=== PATIENT | female | born 1990 | race Caucasian/White ===

== ENCOUNTER → 2017-02-17 | Outpatient (CLI) | payer OTHER ==
--- NOTE | 2017-02-17 16:02 | DIAGNOSTIC IMAGING REPORT ---
EXAMINATION: PELVIC ULTRASOUND (endovaginal study only) CLINICAL HISTORY: Pelvic pain COMPARISON STUDY: FINDINGS: The uterus measured 7.3 x 4.1 x 3.3 cm. The endometrial stripe measured 5 mm. The right ovary measured 1 7 x 24 x 16 mm. The left ovary measured 3 1 x 28 x 22 mm. There is a dominant 18 mm follicle.. There is no ultrasonographic evidence of ovarian torsion. It should be noted that ovarian torsion can be present with normal Doppler ultrasonographic findings. There was no evidence of pathologic free pelvic fluid. IMPRESSION: Normal study Electronically signed by: Chava Turcios M.D. 02/17/2017 4:01 PM Dictated Date/Time: 02/17/2017 3:46 PM
== END | disposition home or self-care (01) ==
LOC: C.ULTRBC 14:45
PROVIDERS: ATTEND Family Medicine
DX: R10.9 Unspecified abdominal pain (principal); R20.2 Paresthesia of skin

== ENCOUNTER 2017-10-23 00:28 | Emergency (ER) | payer OTHER ==
[~2017-10-23] VITALS: Ht 162.6 cm; Wt 68.4 kg
[2017-10-23 00:39] VITALS: TEMP 36.4; Ht 162.6 cm; Wt 68.4 kg
[2017-10-23] MEDS ORDERED: CEFTRIAXONE SOD INJ 1 GM ADDVIAL IV STA (01:26)
[2017-10-23] MEDS ORDERED: CEPHALEXIN 500MG HOME PACK 1 EA BTL PO ONE (01:30)
[2017-10-23] MEDS ORDERED: BCPILLS PO (01:44)
[2017-10-23 01:52] LABS: BASO % 0.3 %; BASO ABS # 0.03 K/uL (0-0.2); COMPLETE YES; EOS % 5.6 %; HEMATOCRIT 39.4 % (37-47); IG% 0.2 %; LYMPH % 39.2 %; LYMPH ABS # 4.33 K/uL (1.2-3.4); MEAN CORPUSCULAR HEMOGLOBIN 29.9 pg (25-34); MEAN CORPUSCULAR HGB CONC 33.2 g/dl (32-36); MEAN PLATELET VOLUME 11.3 fL (7.4-10.4); MONO % 5.4 %; NEUT % 49.3 %; PLATELET COUNT 273 K/uL (130-400); RED BLOOD COUNT 4.38 M/uL (4.2-5.4); WHITE BLOOD COUNT 11.04 K/uL (4.8-10.8)
[2017-10-23 02:20] LABS: PREG INTERNAL NEGATIVE QC NEG CLEAR BACKGROUND; PREG INTERNAL POSITIVE QC POS CONTROL LINE
[2017-10-23 02:31] LABS: BUN/CREATININE RATIO 17.5 (10-20); CREATININE 0.65 mg/dl (0.60-1.20); POTASSIUM 3.6 mmol/L (3.5-5.1)
[2017-10-23] MEDS ORDERED: CEPH500C2 PO (03:04)
[2017-10-23 03:12] VITALS: BP 112/61; PULSE 78; O2SAT 98
--- NOTE | 2017-10-23 06:33 | DIAGNOSTIC IMAGING REPORT ---
ULTRASOUND L VENOUS DOPP LOWER EXT UNILAT CLINICAL HISTORY: Left leg swelling COMPARISON STUDY: No previous studies for comparison. FINDINGS: Real-time and color flow Doppler imaging were performed. Flow was seen within the femoral, popliteal and calf veins with no intraluminal thrombus demonstrated. The saphenous vein is patent. There is lower left leg soft tissue edema. IMPRESSION: No evidence of left lower extremity DVT. Electronically signed by: Chava Turcios M.D. 10/23/2017 6:31 AM Dictated Date/Time: 10/23/2017 6:31 AM
--- NOTE | 2017-10-23 06:46 | EMERGENCY ROOM VISIT NOTE ---
History First contact with patient: 01:08 Chief Complaint: SWELLING TO EXTREMITY Stated Complaint: SWOLLEN ANKLE,NUMBNESS ON THUMBS History of Present Illness The patient is a 27 year old female who presents to the Emergency Room with complaints of left lower ankle pain and swelling for the past day that is erythematous concerning for infection. Patient did something bit her. Pain described as throbbing, 5 out of 10. Movement makes it worse and nothing makes it better. It does not radiate. Patient with the pain and swelling to the area. She has traveled recently. No history DVT or PE. She does not smoke. Tetanus is current. Patient denies chest pain, dyspnea, fever, chills, vomiting. Review of Systems An 8 system review of systems was completed with positives and pertinent negatives listed in the HPI. Past Medical/Surgical History Medical Problems: (1) TMJ disease Social History Smoking Status: Never Smoker Alcohol Use: none Drug Use: none Marital Status: single Housing Status: lives with roommate Occupation Status: [employer] student Current/Historical Medications Scheduled Control Pills ( Control Pills), 1 TAB PO DAILY Cephalexin Monohydrate (Keflex), 500 MG PO QID Physical Exam Vital Signs Date Time Temp Pulse Resp B/P (MAP) Pulse Ox O2 Delivery O2 Flow Rate FiO2 10/23/17 03:12 78 18 112/61 98 Room Air 10/23/17 02:44 70 18 112/76 98 Room Air 10/23/17 00:39 36.4 75 18 105/67 97 Room Air Physical Exam VITALS: Vitals are noted on the nurse's note and reviewed by myself. Vital signs stable. GENERAL: Pleasant female, in no acute distress, nondiaphoretic, well-developed well-nourished. SKIN: Capillary reflex less than 2 seconds. HEENT: Normocephalic. PERRLA. EOMI. Nares patent. Mucous membranes moist. Neck is supple without nuchal rigidity. HEART: Regular rate and rhythm without murmurs gallops or rubs. LUNGS: Clear to auscultation bilaterally without wheezes, rales or rhonchi. No retractions or accessory muscle use. MUSCULOSKELETAL: No gross musculoskeletal defects. Left lateral ankle erythematous and edematous with bite cynthia present concerning for infection. No calf tenderness. Pedal pulses +2 equal present bilaterally. NEURO: Patient was alert and oriented to person place and time. Normal sensation to light and sharp touch. No focal neurological deficits. Medical Decision & Procedures Laboratory Results 10/23/17 01:42 Red Blood Count 4.38, Mean Corpuscular Volume 90.0, Mean Corpuscular Hemoglobin 29.9, Mean Corpuscular Hemoglobin Concent 33.2, Mean Platelet Volume 11.3, Neutrophils (%) (Auto) 49.3, Lymphocytes (%) (Auto) 39.2, Monocytes (%) (Auto) 5.4, Eosinophils (%) (Auto) 5.6, Basophils (%) (Auto) 0.3, Neutrophils # (Auto) 5.44, Lymphocytes # (Auto) 4.33, Monocytes # (Auto) 0.60, Eosinophils # (Auto) 0.62, Basophils # (Auto) 0.03 10/23/17 01:42 Test 10/23/17 01:42 White Blood Count 11.04 K/uL (4.8-10.8) Red Blood Count 4.38 M/uL (4.2-5.4) Hemoglobin 13.1 g/dL (12.0-16.0) Hematocrit 39.4 % (37-47) Mean Corpuscular Volume 90.0 fL (80-100) Mean Corpuscular Hemoglobin 29.9 pg (25-34) Mean Corpuscular Hemoglobin Concent 33.2 g/dl (32-36) Platelet Count 273 K/uL (130-400) Mean Platelet Volume 11.3 fL (7.4-10.4) Neutrophils (%) (Auto) 49.3 % Lymphocytes (%) (Auto) 39.2 % Monocytes (%) (Auto) 5.4 % Eosinophils (%) (Auto) 5.6 % Basophils (%) (Auto) 0.3 % Neutrophils # (Auto) 5.44 K/uL (1.4-6.5) Lymphocytes # (Auto) 4.33 K/uL (1.2-3.4) Monocytes # (Auto) 0.60 K/uL (0.11-0.59) Eosinophils # (Auto) 0.62 K/uL (0-0.5) Basophils # (Auto) 0.03 K/uL (0-0.2) RDW Standard Deviation 43.7 fL (36.4-46.3) RDW Coefficient of Variation 13.2 % (11.5-14.5) Immature Granulocyte % (Auto) 0.2 % Immature Granulocyte # (Auto) 0.02 K/uL (0.00-0.02) Anion Gap 4.0 mmol/L (3-11) Est Creatinine Clear Calc Drug Dose 125.7 ml/min Estimated GFR () 143.0 Estimated GFR (Non- 123.4 BUN/Creatinine Ratio 17.5 (10-20) Calcium Level 9.0 mg/dl (8.5-10.1) Human Chorionic Gonadotropin, Qual NEG (NEG) Chemistry Specimen Hemolysis Medications Administered Medications (Trade) Dose Ordered Sig/Sherie Route Start Time Stop Time Status Last Admin Dose Admin Ceftriaxone Sodium (Rocephin Inj) 1 gm NOW STAT IV 10/23/17 01:26 10/23/17 01:29 DC 10/23/17 01:46 1 GM ED Course Prior records reviewed and summarized as above. Triage Nursing notes reviewed. Additional history obtained from family. The patient's history was concerning for swelling and redness of the skin. Differential diagnosis: Etiologies such as cellulitis, abscess, MRSA infection, DVT, necrotizing fasciitis, dermatitis, drug eruption, as well as others were entertained.. Physical examination: The physical examination was consistent with cellulitis ER treatment provided: Rocephin, Keflex On reassessment the patient felt better. Diagnostics interpreted by me: The labs revealed leukocytosis. Imaging studies: Ultrasound negative for DVT This appears to be isolated cellulitis. Patient was neurovascular and neurologically intact. No signs of abscess or DVT. She is advised to take antibiotics as directed and to follow-up family care in a few days or here in the ER sooner for fever, severe pain, spreading infection, worsening signs or symptoms or as needed. By the evaluation outlined above emergent etiologies such as abscess, necrotizing fasciitis, DVT, as well as others were deemed relatively unlikely. The pt informed about the findings as listed above. All questions were answered and pleased with the treatment. Return instructions were outlined and the patient was discharged in stable condition. Outpatient prescription management: Keflex Referral: The patient was referred back to primary care physician for follow-up in 2 to 3 days for a recheck of the current condition. Case reviewed with my attending Medical Decision As above Medication Reconcilliation Current Medication List: was personally reviewed by me Blood Pressure Screening Patient's blood pressure: Normal blood pressure Impression Primary Impression: Cellulitis of left lower extremity Departure Information Dispostion Home / Self-Care Condition GOOD Prescriptions Cephalexin Monohydrate (KEFLEX) 500 Mg Cap 500 MG PO QID for 9 Days, #36 CAP Prov: Dakota Abby .LIA 10/23/17 Forms WORK / SCHOOL INSTRUCTIONS, HOME CARE DOCUMENTATION FORM, IMPORTANT VISIT INFORMATION Patient Instructions Cellulitis - [facility] Additional Instructions Cephalexin(Keflex) 500mg: Take one pill four times daily for 10 days for your skin infection. All antibiotics can cause diarrhea. If this occurs and you feel worse or it does not resolve in 1-2 days follow up with your doctor or return to the Emergency Department as this could be signs of serious underlying problems. Any medication can cause an allergic reaction, stop the pills immediately and return to the ER for rash, hives, breathing difficulties, or swelling. Ibuprofen(Motrin, Advil) may be used for fever or pain. Use 600mg every six hours as needed. Take with food. Avoid using more than 2400mg in a 24 hour period. Do not use 2400mg per day for more than three consecutive days without physician direction. Prolonged inappropriate use can lead to stomach upset or ulcers. (AND/OR) Acetaminophen(Tylenol) may be used for fever or pain. Use 1000mg every six hours as needed. Avoid using more than 3000mg in a 24 hour period. Warm compresses to the affected area 4 times daily for 15-20 minutes. Rest and drink plenty of fluids. Continue current medications. Return to the ER for severe pain, persistent fevers, spreading redness, or any worsening of your condition. Follow up with your primary physician within 2-3 days for a recheck of the current condition.
== END 2017-10-23 03:30 | disposition home or self-care (01) ==
LOC: C.EDB 00:30
DX: L03.116 Cellulitis of left lower limb (principal)

== ENCOUNTER → 2018-01-21 | Outpatient (CLI) | payer OTHER ==
[~2018-01-21] MED LIST: BCPILLS PO
--- NOTE | 2018-01-21 11:21 | DIAGNOSTIC IMAGING REPORT ---
SOFT TISS HEAD/NECK-THYROID CLINICAL HISTORY: 27 years-old Female with HYPOTHYROIDISM. COMPARISON: None available TECHNIQUE: Multiple real time sonographic images of the thyroid were obtained accessing amaro scale appearance and color doppler flow. FINDINGS: MEASUREMENTS: Right lobe: 5.0 x 1.7 x 1.7 cm Left lobe: 4.6 x 1.5 x 1.5 cm Isthmus: 0.3 cm PARENCHYMA: The thyroid parenchymal echotexture is diffusely heterogeneous. NODULES: No discrete nodules are appreciated. IMPRESSION: Diffusely heterogeneous appearance of the thyroid without focal nodule identified. The above report was generated using voice recognition software. It may contain grammatical, syntax or spelling errors. Electronically signed by: Chay Higginbotham M.D. 01/21/2018 11:20 AM Dictated Date/Time: 01/21/2018 11:18 AM
== END | disposition home or self-care (01) ==
LOC: C.ULTR 10:50
PROVIDERS: ATTEND Family Medicine
DX: E03.9 Hypothyroidism, unspecified (principal)